=== PATIENT | female | born 1955 | race Caucasian/White ===

== ENCOUNTER 2020-08-21 15:44 | Inpatient (IN) | payer MEDICARE ==
[~2020-08-21 15:44] MED LIST: ADALAT CC30 MG PO; AMARYL4 MG PO; AMOXICILLIN500 MG PO; ANORO ELLIPTA1 EACH INH; ASPIRIN CHEWABL81 MG PO; AUGMENTIN875 MG PO; AZITHROMYCIN250 MG PO; BUSPIRONE HCL15 MG PO; BUTALB-ACETAMI1 EAC1 PO; BUTALB-ACETAMI1 EACH PO; CARDIZEM CD180 MG PO; CARDIZEM CD240 M1 PO; CARTIA XT180 MG PO; CATAPRES-TTS 21 EACH TOP; CATAPRES0.1 MG PO; CEFDINIR300 MG PO; CIPRO500 MG PO; CLONIDINE 0.3M0.3 MG PO; CLONIDINE HCL0.1 MG PO; COREG25 MG PO; DETROL LA4 MG PO; DIAZEPAM 5MG TAB5 MG PO; DIGITEK125 MCG PO; DUONEB 2.5-0.5M1 AMP INH; EPIVIR150 MG PO; FLECAINIDE ACET50 MG PO; FUROSEMIDE 40MG40 MG PO; HUMULIN 70100 UNIT/1 SC; HYDRALAZINE25 MG PO; K-DUR20 MEQ PO; KEPPRA XR750 MG PO; KLONOPIN0.5 MG PO; LAMICTAL100 MG PO; LAMICTAL150 MG PO; LASIX40 MG PO; LEVEMIR VI100 UNITS/ SC; LEVEMIR100 UNIT/1 SC; LEVEMIR100 UNIT/1 SQ; LIDOCAINE 5% P1 EACH TOP; LISINOPRIL 10MG10 MG PO; LISINOPRIL40 MG PO; LOPRESSOR50 MG PO; MAG-OXIDE 400M400 MG PO; METHOCARBAMOL500 MG PO; METOPROLOL TAR100 MG PO; MINOXIDIL2.5 MG PO; MIRALAX17 GM PO; NEURONTIN100 MG PO; NIFEDIPINE ER30 M1 PO; NORCO 5-325 TA1 EACH PO; NOVOLIN SQ; NOVOLOG FL100 UNIT/1 SC; OMEPRAZOLE40 MG PO; ONDANSETRON HCL4 MG PO; PEPCID AC20 MG PO; PHENERGAN12.5 M1 PO; PRAVACHOL20 MG PO; PREDNISONE 20MG20 MG PO; PROTONIX 40MG T40 MG PO; PROZAC20 MG PO; PROZAC40 MG PO; REGLAN10 M1 PO; REGLAN10 MG PO; REMERON15 MG PO; SEROQUEL 100MG100 MG PO; SEROQUEL 25MG T25 MG PO; SOMA250 MG PO; SYMBYAX 12-501 EACH PO; SYNTHROID150 MCG PO; TAMIFLU 75MG CA75 MG PO; TOLTERODINE TART4 MG PO; TOPROL XL 50 MG50 MG PO; TOPROL XL50 MG PO; TYLENOL #31 EACH PO; VENTOLIN HFA IN18 GM INH; VIBRAMYCIN100 MG PO; VICTOZA 2-0.6 MG/0.1 SC; VOLTAREN100 GM TOP; XANAX0.5 M1 PO; XARELTO20 MG PO; ZANTAC150 MG PO; ZOFRAN4 MG PO
[2020-08-21 16:29] LABS: BASOPHIL 0.7 % (0-2); EOSINOPHIL 2.7 % (0-5); HCT 37.2 % (37.0-47.0); HGB 11.3 g/dl (12.5-16.0); LYMPHOCYTE 38.7 % (15-48); MCH 27.2 pg (25.0-31.0); MCHC 30.4 g/dL (32.0-36.0); MCV 89.4 fL (78.0-100.0); MONOCYTE 7.8 % (0-12); MPV 11.2 fL (6.0-9.5); NEUTROPHIL 49.8 % (41-80); NRBC 0; PLT 363 K/uL (150-400); RBC 4.16 M/uL (4.20-5.40); RDW 16.1 % (11.5-14.0); WBC 10.4 K/uL (4.0-10.5)
[2020-08-21 16:33] LABS: INR 1.71 (0.9-1.2); PROTHROMBIN TIME 19.1 SECONDS (11.4-13.6)
[2020-08-21 16:42] LABS: PTT 80.2 SECONDS (22.2-34.7)
[2020-08-21 16:45] LABS: ALBUMIN 3.7 g/dL (3.4-5.0); BILIRUBIN - TOTAL 0.3 mg/dL (0.2-1.0); BUN/CREAT RATIO (CALC) 30.6 RATIO; CREATININE 1.93 mg/dL (0.51-0.95); GLOBULIN (CALCULATION) 3.7 g/dL; POTASSIUM 5.4 mmol/L (3.5-5.1); TOTAL PROTEIN 7.4 g/dL (6.4-8.2)
[2020-08-21 16:51] LABS: PRO-BNP 1620 pg/mL (<125)
[2020-08-21 17:03] LABS: LACTIC ACID 1.2 mmol/L (0.4-1.9)
[2020-08-21 17:22] LABS: BILIRUBIN NEGATIVE (NEGATIVE); BLOOD NEGATIVE Ery/uL (NEGATIVE); COLOR YELLOW (YELLOW); GLUCOSE (U) NORMAL (NORMAL); LEUKOCYTES 2+ Leu/uL (NEGATIVE); NITRITE POSITIVE (NEGATIVE); PROTEIN NEGATIVE (NEGATIVE); UROBILINOGEN 0.2 mg/dL (0.2-1.0); pH 5.5 (5.0-9.0)
[2020-08-21 17:23] LABS: CLARITY HAZY (CLEAR)
[2020-08-21 17:28] LABS: BACTERIA TRACE; SQUAMOUS EPITHELIAL CELLS RARE
[2020-08-21 21:44] LABS: IRON % SATURATION 7.3 %SAT (20-50)
[2020-08-21 22:08] LABS: FOLIC ACID (SERUM) 9.7 ng/mL (8.6-58.9)
[2020-08-21 22:54] LABS: BUN 61 mg/dL (7-18); BUN/CREAT RATIO (CALC) 34.1 RATIO; CHLORIDE 105 mmol/L (98-107); CO2 (BICARBONATE) 18 mmol/L (21-32); CREATININE 1.79 mg/dL (0.51-0.95); GLUCOSE 203 mg/dL (74-106); MAGNESIUM 2.4 mg/dL (1.8-2.4); POTASSIUM 5.3 mmol/L (3.5-5.1)
[2020-08-22 05:15] LABS: BASOPHIL 0.6 % (0-2); EOSINOPHIL 1.5 % (0-5); HCT 34.2 % (37.0-47.0); HGB 10.2 g/dl (12.5-16.0); LYMPHOCYTE 17.3 % (15-48); MCH 26.8 pg (25.0-31.0); MCHC 29.8 g/dL (32.0-36.0); MCV 89.8 fL (78.0-100.0); MONOCYTE 4.7 % (0-12); MPV 11.2 fL (6.0-9.5); NEUTROPHIL 75.6 % (41-80); NRBC 0; PLT 313 K/uL (150-400); RBC 3.81 M/uL (4.20-5.40); RDW 15.6 % (11.5-14.0); WBC 10.8 K/uL (4.0-10.5)
[2020-08-22 05:40] LABS: PRO-BNP 1423 pg/mL (<125)
[2020-08-22 05:41] LABS: ALBUMIN 3.1 g/dL (3.4-5.0); BILIRUBIN - TOTAL 0.3 mg/dL (0.2-1.0); BUN/CREAT RATIO (CALC) 35.4 RATIO; CREATININE 1.44 mg/dL (0.51-0.95); GLOBULIN (CALCULATION) 3.4 g/dL; POTASSIUM 5.2 mmol/L (3.5-5.1); TOTAL PROTEIN 6.5 g/dL (6.4-8.2)
[2020-08-22 05:49] LABS: MAGNESIUM 1.9 mg/dL (1.8-2.4)
[2020-08-23 06:08] LABS: BASOPHIL 0.8 % (0-2); EOSINOPHIL 4.1 % (0-5); HCT 32.3 % (37.0-47.0); HGB 9.8 g/dl (12.5-16.0); MCH 26.7 pg (25.0-31.0); MCHC 30.3 g/dL (32.0-36.0); MONOCYTE 7.6 % (0-12); MPV 11.2 fL (6.0-9.5); NEUTROPHIL 48.2 % (41-80); NRBC 0; PLT 251 K/uL (150-400); RBC 3.67 M/uL (4.20-5.40); RDW 15.5 % (11.5-14.0); WBC 6.5 K/uL (4.0-10.5)
[2020-08-23 06:14] LABS: CREATININE 1.07 mg/dL (0.51-0.95); POTASSIUM 4.5 mmol/L (3.5-5.1)
--- NOTE | 2020-08-23 08:00 | NUR ---
PT BLOOD CULTURES POSITIVE, VERIFIED AMOUNT AND TIME CULTURES WERE DRAWN. LAB STATES 2 SETS WERE DRAWN AT 1610 BOTH. MD ORDER ABX IV. CRITICAL VALUE CHARTED.
--- NOTE | 2020-08-23 10:16 | NUR ---
PT REPORTS SHE LIVES ALONE; ASSIST WITH CARE AND REPORTS SHE HAS ID HOME HELATH ASSUMMING THAT MEANS [facility]
[2020-08-24 06:00] LABS: HCT 31.8 % (37.0-47.0); HGB 9.8 g/dl (12.5-16.0); MCH 27.1 pg (25.0-31.0); MCHC 30.8 g/dL (32.0-36.0); MCV 87.8 fL (78.0-100.0); MPV 11.3 fL (6.0-9.5); RBC 3.62 M/uL (4.20-5.40); RDW 15.1 % (11.5-14.0); WBC 6.4 K/uL (4.0-10.5)
[2020-08-24 06:23] LABS: BUN/CREAT RATIO (CALC) 25.5 RATIO; CREATININE 0.94 mg/dL (0.51-0.95); MAGNESIUM 1.6 mg/dL (1.8-2.4); POTASSIUM 4.1 mmol/L (3.5-5.1)
[2020-08-25 04:45] LABS: BASOPHIL 0.6 % (0-2); EOSINOPHIL 3.4 % (0-5); HGB 10.1 g/dl (12.5-16.0); LYMPHOCYTE 29.6 % (15-48); MCH 26.8 pg (25.0-31.0); MCHC 29.7 g/dL (32.0-36.0); MCV 90.2 fL (78.0-100.0); MPV 11.7 fL (6.0-9.5); NEUTROPHIL 59.2 % (41-80); NRBC 0; PLT 237 K/uL (150-400); RBC 3.77 M/uL (4.20-5.40); RDW 15.2 % (11.5-14.0); WBC 8.7 K/uL (4.0-10.5)
[2020-08-25 05:00] LABS: BILIRUBIN - TOTAL 0.2 mg/dL (0.2-1.0); BUN/CREAT RATIO (CALC) 22.3 RATIO; CREATININE 1.03 mg/dL (0.51-0.95); GLOBULIN (CALCULATION) 3.2 g/dL; MAGNESIUM 2.1 mg/dL (1.8-2.4); PHOSPHORUS 3.1 mg/dL (2.6-4.7); POTASSIUM 3.7 mmol/L (3.5-5.1); TOTAL PROTEIN 6.2 g/dL (6.4-8.2)
--- NOTE | 2020-08-25 14:14 | NUR ---
08/25/20 Ms. Sarmiento shares a home with her son. She has a shower chair, emergency alert system, and emotional support dog. She is not currently followed by HH. Ms. Sarmiento states that she does not wish to have HH services at discharge.
[2020-08-25] MEDS ORDERED: SOMA250 MG PO (14:37)
[2020-08-25] MEDS ORDERED: CEFDINIR300 MG PO (14:37)
--- NOTE | 2020-08-25 15:27 | NUR ---
08/25/20 A cab voucher was provided for transport home. - Report given to MEGA Fang RN.
== END 2020-08-25 16:00 | disposition home or self-care (01) | DRG 871 ==
LOC: FER 15:44 → FICU 18:10 → FTCU 08-22 08:31
PROVIDERS: Internal Medicine; Nurse Practitioner Family; ADMIT Internal Medicine
PROC: 3E043XZ Introduction of Vasopressor into Central Vein, Percutaneous Approach (ICD-10-PCS; principal; 2020-08-21)
DX: A41.9 Sepsis, unspecified organism (principal); R65.21 Severe sepsis with septic shock; I13.0 Hypertensive heart and chronic kidney disease with heart failure and stage 1 through stage 4 chronic kidney disease, or unspecified chronic kidney disease; I50.32 Chronic diastolic (congestive) heart failure; N17.9 Acute kidney failure, unspecified; I48.20 Chronic atrial fibrillation, unspecified; N30.00 Acute cystitis without hematuria; B96.20 Unspecified Escherichia coli [E. coli] as the cause of diseases classified elsewhere; Z20.822 Contact with and (suspected) exposure to COVID-19; E86.0 Dehydration; J44.9 Chronic obstructive pulmonary disease, unspecified; E11.22 Type 2 diabetes mellitus with diabetic chronic kidney disease; E87.5 Hyperkalemia; E78.5 Hyperlipidemia, unspecified; F32.9 Major depressive disorder, single episode, unspecified; I25.10 Atherosclerotic heart disease of native coronary artery without angina pectoris; D50.9 Iron deficiency anemia, unspecified; F17.200 Nicotine dependence, unspecified, uncomplicated; F41.9 Anxiety disorder, unspecified; E03.9 Hypothyroidism, unspecified; G40.909 Epilepsy, unspecified, not intractable, without status epilepticus; N18.30 Chronic kidney disease, stage 3 unspecified; K21.9 Gastro-esophageal reflux disease without esophagitis; G89.4 Chronic pain syndrome; Z79.01 Long term (current) use of anticoagulants; Z98.890 Other specified postprocedural states; Z95.0 Presence of cardiac pacemaker; Z88.8 Allergy status to other drugs, medicaments and biological substances; Z79.4 Long term (current) use of insulin; I25.2 Old myocardial infarction; Z98.51 Tubal ligation status; Z90.710 Acquired absence of both cervix and uterus
CPT/HCPCS: 36415; 71045; 80048; 80053; 81001; 82607; 82746; 82962; 83540; 83550; 83605; 83735; 83880; 84100; 84145; 84439; 84443; 84484; 85025; 85610; 85730; 87040; 87076; 87077; 87088; 87186; 93005; 94010; 94640; 96374; 96375; J0696; J1265; J1956; J2916; J3420; J3475; J7030; J7040; U0002

== ENCOUNTER 2020-09-06 00:33 | Emergency (ER) | payer MEDICARE ==
[2020-09-06 01:40] LABS: BASOPHIL 0.7 % (0-2); EOSINOPHIL 2.8 % (0-5); HCT 37.4 % (37.0-47.0); HGB 11.6 g/dl (12.5-16.0); LYMPHOCYTE 36.7 % (15-48); MCH 27.3 pg (25.0-31.0); MONOCYTE 4.2 % (0-12); MPV 10.5 fL (6.0-9.5); NEUTROPHIL 55.2 % (41-80); NRBC 0; PLT 403 K/uL (150-400); RBC 4.25 M/uL (4.20-5.40); RDW 15.7 % (11.5-14.0)
[2020-09-06 01:41] LABS: WBC 13.4 K/uL (4.0-10.5)
[2020-09-06 01:58] LABS: ALBUMIN 3.7 g/dL (3.4-5.0); BILIRUBIN - TOTAL 0.2 mg/dL (0.2-1.0); BUN/CREAT RATIO (CALC) 27.3 RATIO; CREATININE 1.43 mg/dL (0.51-0.95); GLOBULIN (CALCULATION) 4.2 g/dL; POTASSIUM 4.5 mmol/L (3.5-5.1); TOTAL PROTEIN 7.9 g/dL (6.4-8.2)
[2020-09-06 01:59] LABS: BILIRUBIN NEGATIVE (NEGATIVE); BLOOD NEGATIVE Ery/uL (NEGATIVE); CLARITY CLEAR (CLEAR); COLOR YELLOW (YELLOW); GLUCOSE (U) NORMAL (NORMAL); LEUKOCYTES NEGATIVE Leu/uL (NEGATIVE); NITRITE NEGATIVE (NEGATIVE); PROTEIN NEGATIVE (NEGATIVE); SPECIFIC GRAVITY <=1.005 (1.001-1.030); UROBILINOGEN 0.2 mg/dL (0.2-1.0)
[2020-09-06 02:00] LABS: AMPHETAMINES NEGATIVE (NEGATIVE); BARBITURATES NEGATIVE (NEGATIVE); ECSTASY (MDMA) NEGATIVE (NEGATIVE); MARIJUANA (THC) NEGATIVE (NEGATIVE); METHADONE NEGATIVE (NEGATIVE); OPIATES NEGATIVE (NEGATIVE); OXYCODONE NEGATIVE (NEGATIVE)
[2020-09-06 02:35] LABS: CORONAVIRUS 2019 SARS-COV-2 NEGATIVE (NEGATIVE); INFLUENZA A NAA NEGATIVE (NEGATIVE)
== END 2020-09-06 07:12 | disposition home or self-care (01) ==
LOC: FER 00:33
PROVIDERS: Emergency Medicine
DX: R06.00 Dyspnea, unspecified (principal); F10.10 Alcohol abuse, uncomplicated; R07.89 Other chest pain; I11.0 Hypertensive heart disease with heart failure; I50.9 Heart failure, unspecified; E11.9 Type 2 diabetes mellitus without complications; J44.9 Chronic obstructive pulmonary disease, unspecified; F17.210 Nicotine dependence, cigarettes, uncomplicated; Z95.0 Presence of cardiac pacemaker; Y90.7 Blood alcohol level of 200-239 mg/100 ml; Z20.822 Contact with and (suspected) exposure to COVID-19
CPT/HCPCS: 36415; 71045; 80053; 80305; 81003; 83880; 84484; 85025; 85379; 93005; G0480; U0002

== ENCOUNTER 2021-01-27 11:49 | Inpatient (IN) | payer MEDICARE ==
[~2021-01-27] VITALS: Ht 160 cm; Wt 74.6 kg
[2021-01-27 12:21] LABS: BASOPHIL 0.6 % (0-2); EOSINOPHIL 0.8 % (0-5); HCT 39.3 % (37.0-47.0); HGB 12.4 g/dl (12.5-16.0); LYMPHOCYTE 20.7 % (15-48); MCHC 31.6 g/dL (32.0-36.0); MCV 85.4 fL (78.0-100.0); MONOCYTE 4.5 % (0-12); MPV 11.7 fL (6.0-9.5); NEUTROPHIL 72.5 % (41-80); NRBC 0; PLT 368 K/uL (150-400); RDW 14.7 % (11.5-14.0); WBC 23.5 K/uL (4.0-10.5)
[2021-01-27 12:26] LABS: INR 1.11 (0.9-1.2); PROTHROMBIN TIME 13.6 SECONDS (11.4-13.6); PTT 41.7 SECONDS (22.2-34.7)
[2021-01-27 12:52] LABS: LACTIC ACID 3.4 mmol/L (0.4-1.9)
[2021-01-27 12:54] LABS: PRO-BNP 2232 pg/mL (<125)
[2021-01-27 13:05] LABS: ALBUMIN 3.8 g/dL (3.4-5.0); BILIRUBIN - TOTAL 0.6 mg/dL (0.2-1.0); BUN/CREAT RATIO (CALC) 36.5 RATIO; CREATININE 1.04 mg/dL (0.51-0.95); GLOBULIN (CALCULATION) 3.8 g/dL; POTASSIUM 5.2 mmol/L (3.5-5.1); TOTAL PROTEIN 7.6 g/dL (6.4-8.2)
[2021-01-27 13:33] LABS: BILIRUBIN NEGATIVE (NEGATIVE); BLOOD TRACE-INTACT Ery/uL (NEGATIVE); CLARITY CLEAR (CLEAR); COLOR YELLOW (YELLOW); GLUCOSE (U) 3+ mg/dL (NORMAL); LEUKOCYTES NEGATIVE Leu/uL (NEGATIVE); NITRITE NEGATIVE (NEGATIVE); PROTEIN 1+ mg/dL (NEGATIVE); SPECIFIC GRAVITY 1.015 (1.001-1.030); UROBILINOGEN 0.2 mg/dL (0.2-1.0); pH 6.5 (5.0-9.0)
[2021-01-27 13:42] LABS: SQUAMOUS EPITHELIAL CELLS RARE; URINARY WBC RARE
[2021-01-27] MEDS ORDERED: ELIQUIS5 MG PO (15:46)
[2021-01-27] MEDS ORDERED: LASIX40 MG PO (15:52)
[2021-01-27] MEDS ORDERED: ANORO ELLIPTA1 EACH INH (15:57)
[2021-01-27] MEDS ORDERED: PROZAC20 MG PO (15:57)
[2021-01-27] MEDS ORDERED: DIGITEK125 MCG PO (16:00)
[2021-01-27] MEDS ORDERED: LAMICTAL100 MG PO (16:01)
[2021-01-28 05:47] LABS: BASOPHIL 0.2 % (0-2); EOSINOPHIL 0 % (0-5); HCT 37.6 % (37.0-47.0); HGB 12.5 g/dl (12.5-16.0); LYMPHOCYTE 8.3 % (15-48); MCH 26.7 pg (25.0-31.0); MCHC 33.2 g/dL (32.0-36.0); MONOCYTE 1.5 % (0-12); MPV 11.5 fL (6.0-9.5); NEUTROPHIL 89.5 % (41-80); NRBC 0; PLT 283 K/uL (150-400); RBC 4.68 M/uL (4.20-5.40); RDW 14.6 % (11.5-14.0); WBC 16.5 K/uL (4.0-10.5)
[2021-01-28 05:51] LABS: MCV 80.3 fL (78.0-100.0)
[2021-01-28 06:08] LABS: CREATININE 0.9 mg/dL (0.51-0.95); MAGNESIUM 2.3 mg/dL (1.8-2.4); POTASSIUM 4.6 mmol/L (3.5-5.1)
[2021-01-29 06:03] LABS: BASOPHIL 0.2 % (0-2); EOSINOPHIL 0.3 % (0-5); HCT 44.1 % (37.0-47.0); HGB 14.1 g/dl (12.5-16.0); LYMPHOCYTE 24.5 % (15-48); MCH 26.1 pg (25.0-31.0); MCV 81.7 fL (78.0-100.0); MONOCYTE 5.5 % (0-12); MPV 11.9 fL (6.0-9.5); NEUTROPHIL 68.8 % (41-80); NRBC 0; PLT 367 K/uL (150-400); RDW 15.1 % (11.5-14.0); WBC 19.6 K/uL (4.0-10.5)
[2021-01-29 06:22] LABS: BUN/CREAT RATIO (CALC) 41.5 RATIO; CREATININE 1.06 mg/dL (0.51-0.95); POTASSIUM 3.8 mmol/L (3.5-5.1)
[2021-01-29] MEDS ORDERED: PREDNISONE 20MG20 MG PO (10:02)
[2021-01-29] MEDS ORDERED: LASIX40 MG PO (10:02)
== END 2021-01-29 12:20 | disposition home or self-care (01) | DRG 291 ==
LOC: FER 11:49 → FTCU 13:35
PROVIDERS: Emergency Medicine; ADMIT Internal Medicine
DX: I13.0 Hypertensive heart and chronic kidney disease with heart failure and stage 1 through stage 4 chronic kidney disease, or unspecified chronic kidney disease (principal); I50.33 Acute on chronic diastolic (congestive) heart failure; J96.01 Acute respiratory failure with hypoxia; J96.02 Acute respiratory failure with hypercapnia; J44.1 Chronic obstructive pulmonary disease with (acute) exacerbation; E11.65 Type 2 diabetes mellitus with hyperglycemia; Z91.14 Patient's other noncompliance with medication regimen; I48.0 Paroxysmal atrial fibrillation; E78.5 Hyperlipidemia, unspecified; N18.9 Chronic kidney disease, unspecified; G40.909 Epilepsy, unspecified, not intractable, without status epilepticus; K21.9 Gastro-esophageal reflux disease without esophagitis; D63.1 Anemia in chronic kidney disease; E03.9 Hypothyroidism, unspecified; I27.20 Pulmonary hypertension, unspecified; F17.200 Nicotine dependence, unspecified, uncomplicated; F41.9 Anxiety disorder, unspecified; F32.9 Major depressive disorder, single episode, unspecified; Z90.710 Acquired absence of both cervix and uterus; Z95.0 Presence of cardiac pacemaker; Z98.51 Tubal ligation status; Z88.8 Allergy status to other drugs, medicaments and biological substances; Z98.890 Other specified postprocedural states
CPT/HCPCS: 36415; 36600; 71045; 80048; 80053; 81001; 82803; 82962; 83036; 83605; 83735; 83880; 84145; 84484; 85025; 85610; 85730; 87040; 93005; 94640; 94660; 94664; 94760; J1940; J1956; J2920; J2930; J7030; U0002

== ENCOUNTER 2021-05-22 09:56 | Emergency (ER) | payer MEDICARE ==
[~2021-05-22 09:56] MED LIST changes: +ELIQUIS5 MG PO
[2021-05-22 10:55] LABS: BASOPHIL 0.8 % (0-2); EOSINOPHIL 1.9 % (0-5); HCT 38.8 % (37.0-47.0); HGB 11.9 g/dl (12.5-16.0); LYMPHOCYTE 33.5 % (15-48); MCH 25.1 pg (25.0-31.0); MCHC 30.7 g/dL (32.0-36.0); MCV 81.7 fL (78.0-100.0); MONOCYTE 5.7 % (0-12); MPV 11.6 fL (6.0-9.5); NEUTROPHIL 57.8 % (41-80); NRBC 0; PLT 373 K/uL (150-400); RBC 4.75 M/uL (4.20-5.40); RDW 16.5 % (11.5-14.0); WBC 12.5 K/uL (4.0-10.5)
[2021-05-22 11:00] LABS: INR 2.17 (0.9-1.2); PROTHROMBIN TIME 23.3 SECONDS (11.8-13.4)
[2021-05-22 11:01] LABS: ALBUMIN 3.3 g/dL (3.4-5.0); BILIRUBIN - TOTAL 0.3 mg/dL (0.2-1.0); BUN/CREAT RATIO (CALC) 25.9 RATIO; CREATININE 1.74 mg/dL (0.51-0.95); GLOBULIN (CALCULATION) 3.8 g/dL; POTASSIUM 4.1 mmol/L (3.5-5.1); TOTAL PROTEIN 7.1 g/dL (6.4-8.2)
[2021-05-22 11:33] LABS: PTT 73.4 SECONDS (24.4-34.7)
[2021-05-22 12:36] LABS: CORONAVIRUS 2019 SARS-COV-2 NEGATIVE (NEGATIVE); INFLUENZA A NAA NEGATIVE (NEGATIVE)
[2021-05-22 17:33] LABS: ECSTASY (MDMA) NEGATIVE (NEGATIVE); MARIJUANA (THC) NEGATIVE (NEGATIVE); METHADONE NEGATIVE (NEGATIVE); OPIATES NEGATIVE (NEGATIVE)
[2021-05-22 17:34] LABS: AMPHETAMINES NEGATIVE (NEGATIVE); BARBITURATES NEGATIVE (NEGATIVE); OXYCODONE NEGATIVE (NEGATIVE)
[2021-05-22 17:50] LABS: BILIRUBIN NEGATIVE (NEGATIVE); BLOOD TRACE-INTACT Ery/uL (NEGATIVE); CLARITY CLEAR (CLEAR); COLOR YELLOW (YELLOW); GLUCOSE (U) NORMAL (NORMAL); LEUKOCYTES 2+ Leu/uL (NEGATIVE); NITRITE POSITIVE (NEGATIVE); PROTEIN NEGATIVE (NEGATIVE); UROBILINOGEN 0.2 mg/dL (0.2-1.0); pH 5.5 (5.0-9.0)
[2021-05-22 17:58] LABS: BACTERIA 3+
[2021-05-22] MEDS ORDERED: LASIX40 MG PO (18:45)
[2021-05-22] MEDS ORDERED: CEPHALEXIN500 MG PO (18:52)
== END 2021-05-23 05:30 | disposition home or self-care (01) ==
LOC: FER 09:56
PROVIDERS: Internal Medicine
DX: J96.01 Acute respiratory failure with hypoxia (principal); I13.0 Hypertensive heart and chronic kidney disease with heart failure and stage 1 through stage 4 chronic kidney disease, or unspecified chronic kidney disease; I50.9 Heart failure, unspecified; Z20.822 Contact with and (suspected) exposure to COVID-19; J44.9 Chronic obstructive pulmonary disease, unspecified; N39.0 Urinary tract infection, site not specified; I48.91 Unspecified atrial fibrillation; E11.22 Type 2 diabetes mellitus with diabetic chronic kidney disease; E78.5 Hyperlipidemia, unspecified; F17.210 Nicotine dependence, cigarettes, uncomplicated; Z95.0 Presence of cardiac pacemaker; Z79.01 Long term (current) use of anticoagulants; Z88.8 Allergy status to other drugs, medicaments and biological substances
CPT/HCPCS: 36415; 36600; 70450; 71045; 71250; 80053; 80305; 81001; 82803; 83880; 84484; 85025; 85379; 85610; 85730; 87076; 87088; 87186; 93005; 94640; J0696; J1885; J2310; J2930; J7040; U0002

== ENCOUNTER 2021-05-28 11:00 | Emergency (ER) | payer MEDICARE ==
[~2021-05-28 11:00] MED LIST changes: +CEPHALEXIN500 MG PO
[2021-05-28 12:03] LABS: BASOPHIL 0.5 % (0-2); EOSINOPHIL 1.6 % (0-5); HCT 35.1 % (37.0-47.0); LYMPHOCYTE 29.4 % (15-48); MCH 24.8 pg (25.0-31.0); MCHC 31.3 g/dL (32.0-36.0); MCV 79.1 fL (78.0-100.0); MONOCYTE 6.1 % (0-12); MPV 11.3 fL (6.0-9.5); NEUTROPHIL 61.4 % (41-80); NRBC 0; PLT 275 K/uL (150-400); RBC 4.44 M/uL (4.20-5.40); RDW 15.9 % (11.5-14.0); WBC 9.8 K/uL (4.0-10.5)
[2021-05-28 12:37] LABS: ALBUMIN 3.1 g/dL (3.4-5.0); BILIRUBIN - TOTAL 0.4 mg/dL (0.2-1.0); BUN/CREAT RATIO (CALC) 25.6 RATIO; CREATININE 1.29 mg/dL (0.51-0.95); GLOBULIN (CALCULATION) 3.7 g/dL; POTASSIUM 3.9 mmol/L (3.5-5.1); TOTAL PROTEIN 6.8 g/dL (6.4-8.2)
[2021-05-28 13:04] LABS: BILIRUBIN NEGATIVE (NEGATIVE); BLOOD NEGATIVE Ery/uL (NEGATIVE); CLARITY CLEAR (CLEAR); COLOR YELLOW (YELLOW); GLUCOSE (U) 3+ mg/dL (NORMAL); LEUKOCYTES NEGATIVE Leu/uL (NEGATIVE); NITRITE NEGATIVE (NEGATIVE); PROTEIN NEGATIVE (NEGATIVE); SPECIFIC GRAVITY <=1.005 (1.001-1.030); UROBILINOGEN 0.2 mg/dL (0.2-1.0); pH 6.5 (5.0-9.0)
[2021-05-28 13:07] LABS: AMPHETAMINES NEGATIVE (NEGATIVE); BARBITURATES NEGATIVE (NEGATIVE); ECSTASY (MDMA) NEGATIVE (NEGATIVE); MARIJUANA (THC) NEGATIVE (NEGATIVE); METHADONE NEGATIVE (NEGATIVE); OPIATES POSITIVE (NEGATIVE); OXYCODONE NEGATIVE (NEGATIVE)
[2021-05-28 14:08] LABS: PRO-BNP 3182 pg/mL (<125)
== END 2021-05-28 17:54 | disposition home or self-care (01) ==
LOC: FER 11:00
PROVIDERS: Internal Medicine; Nurse Practitioner Family
DX: G93.41 Metabolic encephalopathy (principal); E11.22 Type 2 diabetes mellitus with diabetic chronic kidney disease; E11.65 Type 2 diabetes mellitus with hyperglycemia; I13.0 Hypertensive heart and chronic kidney disease with heart failure and stage 1 through stage 4 chronic kidney disease, or unspecified chronic kidney disease; N18.9 Chronic kidney disease, unspecified; I50.9 Heart failure, unspecified; J44.9 Chronic obstructive pulmonary disease, unspecified; Z79.4 Long term (current) use of insulin; Z79.01 Long term (current) use of anticoagulants; Z88.8 Allergy status to other drugs, medicaments and biological substances; Z87.891 Personal history of nicotine dependence; Z20.822 Contact with and (suspected) exposure to COVID-19
CPT/HCPCS: 36415; 36600; 70450; 71045; 80053; 80305; 81003; 82009; 82803; 83690; 83880; 84484; 85025; 93005; J2310; J7030; U0002

== ENCOUNTER 2021-05-28 22:48 | Emergency (ER) | payer MEDICARE | END 2021-05-29 03:25 | disposition home or self-care (01) | LOC: FER 22:48 | DX: E11.65 Type 2 diabetes mellitus with hyperglycemia (principal); Z88.8 Allergy status to other drugs, medicaments and biological substances; Z79.4 Long term (current) use of insulin | CPT/HCPCS: 99284 ==

== ENCOUNTER 2021-05-31 00:48 | Emergency (ER) | payer MEDICARE ==
[2021-05-31 02:03] LABS: BASOPHIL 0.4 % (0-2); EOSINOPHIL 0.9 % (0-5); HCT 34.5 % (37.0-47.0); HGB 10.7 g/dl (12.5-16.0); LYMPHOCYTE 23.3 % (15-48); MCH 24.7 pg (25.0-31.0); MCV 79.5 fL (78.0-100.0); MONOCYTE 3.2 % (0-12); MPV 11.5 fL (6.0-9.5); NRBC 0; PLT 307 K/uL (150-400); RBC 4.34 M/uL (4.20-5.40); RDW 15.9 % (11.5-14.0); WBC 17.9 K/uL (4.0-10.5)
[2021-05-31 02:05] LABS: NEUTROPHIL 71.8 % (41-80)
[2021-05-31 02:49] LABS: ALBUMIN 3.2 g/dL (3.4-5.0); BILIRUBIN - TOTAL 0.3 mg/dL (0.2-1.0); BUN/CREAT RATIO (CALC) 20.3 RATIO; CREATININE 1.77 mg/dL (0.51-0.95); GLOBULIN (CALCULATION) 3.8 g/dL; POTASSIUM 4.1 mmol/L (3.5-5.1)
[2021-05-31 04:12] LABS: BILIRUBIN NEGATIVE (NEGATIVE); BLOOD NEGATIVE Ery/uL (NEGATIVE); CLARITY CLEAR (CLEAR); COLOR YELLOW (YELLOW); GLUCOSE (U) NORMAL (NORMAL); LEUKOCYTES NEGATIVE Leu/uL (NEGATIVE); NITRITE NEGATIVE (NEGATIVE); PROTEIN NEGATIVE (NEGATIVE); SPECIFIC GRAVITY <=1.005 (1.001-1.030); UROBILINOGEN 0.2 mg/dL (0.2-1.0); pH 5.5 (5.0-9.0)
== END 2021-05-31 06:14 | disposition home or self-care (01) ==
LOC: FER 00:48
PROVIDERS: Emergency Medicine
DX: F10.129 Alcohol abuse with intoxication, unspecified (principal); N17.9 Acute kidney failure, unspecified; J44.9 Chronic obstructive pulmonary disease, unspecified; I25.10 Atherosclerotic heart disease of native coronary artery without angina pectoris; I10 Essential (primary) hypertension; E11.9 Type 2 diabetes mellitus without complications; F17.200 Nicotine dependence, unspecified, uncomplicated; Z88.8 Allergy status to other drugs, medicaments and biological substances; Y90.6 Blood alcohol level of 120-199 mg/100 ml
CPT/HCPCS: 36415; 71045; 80053; 81003; 84484; 85025; 93005; G0480

== ENCOUNTER 2021-11-16 07:36 | Emergency (ER) | payer MEDICARE ==
[2021-11-16 08:12] LABS: BASOPHIL 0.5 % (0-2); EOSINOPHIL 1.5 % (0-7); HCT 40.2 % (37.0-47.0); HGB 12.2 g/dl (12.5-16.0); MCH 22.6 pg (25.0-31.0); MCHC 30.3 g/dL (32.0-36.0); MCV 74.4 fL (78.0-100.0); MONOCYTE 4.4 % (0-12); MPV 10.7 fL (6.0-9.5); NEUTROPHIL 73.9 % (41-80); NRBC 0; PLT 346 K/uL (150-400); RDW 18.8 % (11.5-14.0); WBC 16.8 K/uL (4.0-10.5)
[2021-11-16 08:30] LABS: ALBUMIN 3.7 g/dL (3.4-5.0); BILIRUBIN - TOTAL 0.4 mg/dL (0.2-1.0); BUN/CREAT RATIO (CALC) 19.6 RATIO; CREATININE 1.43 mg/dL (0.51-0.95); GLOBULIN (CALCULATION) 4.5 g/dL; POTASSIUM 3.5 mmol/L (3.5-5.1); TOTAL PROTEIN 8.2 g/dL (6.4-8.2)
[2021-11-16 08:42] LABS: BILIRUBIN NEGATIVE (NEGATIVE); BLOOD TRACE-INTACT Ery/uL (NEGATIVE); CLARITY CLEAR (CLEAR); COLOR YELLOW (YELLOW); GLUCOSE (U) NORMAL (NORMAL); LEUKOCYTES NEGATIVE Leu/uL (NEGATIVE); NITRITE NEGATIVE (NEGATIVE); PROTEIN NEGATIVE (NEGATIVE); UROBILINOGEN 0.2 mg/dL (0.2-1.0); pH 6.5 (5.0-9.0)
[2021-11-16 09:06] LABS: URINARY WBC RARE
[2021-11-16 09:07] LABS: BACTERIA TRACE
== END 2021-11-16 11:30 | disposition home or self-care (01) ==
LOC: FER 07:36
PROVIDERS: Emergency Medicine
DX: E11.649 Type 2 diabetes mellitus with hypoglycemia without coma (principal); I13.0 Hypertensive heart and chronic kidney disease with heart failure and stage 1 through stage 4 chronic kidney disease, or unspecified chronic kidney disease; E11.22 Type 2 diabetes mellitus with diabetic chronic kidney disease; I50.9 Heart failure, unspecified; N18.4 Chronic kidney disease, stage 4 (severe); F17.200 Nicotine dependence, unspecified, uncomplicated; Z88.8 Allergy status to other drugs, medicaments and biological substances
CPT/HCPCS: 36415; 80053; 81001; 85025; 93005

== ENCOUNTER 2021-12-05 23:43 | Inpatient (IN) | payer MEDICARE ==
[~2021-12-05] VITALS: Ht 160 cm; Wt 81.4 kg
[2021-12-06 00:23] LABS: BASOPHIL 0.5 % (0-2); EOSINOPHIL 0.9 % (0-7); HCT 36.7 % (37.0-47.0); HGB 10.6 g/dl (12.5-16.0); MCH 22.1 pg (25.0-31.0); MCHC 28.9 g/dL (32.0-36.0); MCV 76.6 fL (78.0-100.0); MONOCYTE 3.8 % (0-12); MPV 11.3 fL (6.0-9.5); NRBC 0; PLT 632 K/uL (150-400); RBC 4.79 M/uL (4.20-5.40); RDW 18.6 % (11.5-14.0); WBC 25.6 K/uL (4.0-10.5)
[2021-12-06 00:42] LABS: NEUTROPHIL 71.3 % (41-80)
[2021-12-06 00:43] LABS: ALBUMIN 3.4 g/dL (3.4-5.0); BILIRUBIN - TOTAL 0.6 mg/dL (0.2-1.0); BUN/CREAT RATIO (CALC) 19.4 RATIO; CREATININE 1.29 mg/dL (0.51-0.95); GLOBULIN (CALCULATION) 4.6 g/dL; POTASSIUM 4.6 mmol/L (3.5-5.1)
[2021-12-06 00:48] LABS: LACTIC ACID 4.5 mmol/L (0.4-1.9)
[2021-12-06 03:10] LABS: BILIRUBIN NEGATIVE (NEGATIVE); BLOOD NEGATIVE Ery/uL (NEGATIVE); CLARITY CLEAR (CLEAR); COLOR YELLOW (YELLOW); GLUCOSE (U) TRACE mg/dL (NORMAL); LEUKOCYTES NEGATIVE Leu/uL (NEGATIVE); NITRITE NEGATIVE (NEGATIVE); PROTEIN NEGATIVE (NEGATIVE); SPECIFIC GRAVITY 1.015 (1.001-1.030); UROBILINOGEN 0.2 mg/dL (0.2-1.0)
[2021-12-06 04:35] LABS: CORONAVIRUS 2019 SARS-COV-2 NEGATIVE (NEGATIVE); INFLUENZA A NAA NEGATIVE (NEGATIVE)
[2021-12-06] MEDS ORDERED: LASIX40 MG PO (05:58)
[2021-12-06] MEDS ORDERED: CLONIDINE HCL0.1 MG PO (05:58)
[2021-12-06] MEDS ORDERED: ELIQUIS5 MG PO (05:59)
[2021-12-06] MEDS ORDERED: VENTOLIN (2.5 MG/3 M INH (05:59)
[2021-12-06] MEDS ORDERED: CARVEDILOL 25MG25 MG PO (06:00)
[2021-12-06] MEDS ORDERED: DIAZEPAM 5MG TAB5 MG PO (06:01)
[2021-12-06] MEDS ORDERED: PROZAC20 MG PO (06:01)
[2021-12-06] MEDS ORDERED: HYDRALAZINE25 MG PO (06:02)
[2021-12-06] MEDS ORDERED: TRELEGY ELLIPT1 EAC1 INH (06:02)
[2021-12-06] MEDS ORDERED: LEVEMIR VI100 UNITS/ SC (06:03)
[2021-12-06] MEDS ORDERED: IPRATROPIUM0.2 MG/ML INH (06:04)
[2021-12-06] MEDS ORDERED: LAMICTAL100 MG PO (06:05)
[2021-12-06] MEDS ORDERED: LIDOCAINE 5% P1 EACH TOP (06:06)
[2021-12-06] MEDS ORDERED: SYNTHROID150 MCG PO (06:06)
[2021-12-06] MEDS ORDERED: MINOXIDIL2.5 MG PO (06:07)
[2021-12-06] MEDS ORDERED: LOPRESSOR50 MG PO (06:07)
[2021-12-06] MEDS ORDERED: REMERON15 MG PO (06:07)
[2021-12-06] MEDS ORDERED: ADALAT CC30 MG PO (06:08)
[2021-12-06] MEDS ORDERED: ONDANSETRON HCL4 MG PO (06:09)
[2021-12-06] MEDS ORDERED: PROTONIX 40MG T40 MG PO (06:09)
[2021-12-06] MEDS ORDERED: K-TAB ER10 MEQ PO (06:10)
[2021-12-06] MEDS ORDERED: PHENERGAN12.5 M1 PO (06:11)
[2021-12-06] MEDS ORDERED: PRAVACHOL20 MG PO (06:11)
[2021-12-06 06:18] LABS: BASOPHIL 0.2 % (0-2); EOSINOPHIL 0 % (0-7); HCT 30.3 % (37.0-47.0); HGB 8.9 g/dl (12.5-16.0); LYMPHOCYTE 3.9 % (15-48); MCH 22.3 pg (25.0-31.0); MCHC 29.4 g/dL (32.0-36.0); MCV 75.9 fL (78.0-100.0); MONOCYTE 0.5 % (0-12); NRBC 0; PLT 413 K/uL (150-400); RBC 3.99 M/uL (4.20-5.40); RDW 18.1 % (11.5-14.0); WBC 12.4 K/uL (4.0-10.5)
[2021-12-06 06:19] LABS: NEUTROPHIL 94.9 % (41-80)
[2021-12-06 06:33] LABS: IRON % SATURATION 3.6 %SAT (20-50)
[2021-12-06 06:44] LABS: BUN/CREAT RATIO (CALC) 21.2 RATIO; CREATININE 1.18 mg/dL (0.51-0.95); POTASSIUM 4.6 mmol/L (3.5-5.1)
[2021-12-07 05:52] LABS: BASOPHIL 0.2 % (0-2); EOSINOPHIL 0.4 % (0-7); HCT 29.1 % (37.0-47.0); HGB 8.8 g/dl (12.5-16.0); LYMPHOCYTE 10.9 % (15-48); MCH 22.8 pg (25.0-31.0); MCHC 30.2 g/dL (32.0-36.0); MCV 75.4 fL (78.0-100.0); MONOCYTE 2.7 % (0-12); MPV 10.7 fL (6.0-9.5); NEUTROPHIL 85.2 % (41-80); NRBC 0.1; PLT 408 K/uL (150-400); RBC 3.86 M/uL (4.20-5.40); RDW 17.9 % (11.5-14.0); WBC 17.6 K/uL (4.0-10.5)
[2021-12-07 06:14] LABS: BUN/CREAT RATIO (CALC) 24.8 RATIO; C-REACTIVE PROTEIN 4.1 mg/dL (<=0.90); CREATININE 1.33 mg/dL (0.51-0.95); POTASSIUM 3.7 mmol/L (3.5-5.1)
[2021-12-07] MEDS ORDERED: TRELEGY ELLIPT1 EAC1 INH (08:37)
[2021-12-07] MEDS ORDERED: VIBRAMYCIN100 MG PO (08:37)
[2021-12-07] MEDS ORDERED: VENTOLIN HFA IN18 GM INH (08:37)
[2021-12-07] MEDS ORDERED: FEOSOL325 MG PO (08:37)
== END 2021-12-07 14:15 | disposition home or self-care (01) | DRG 871 ==
LOC: FER 23:43 → FTCU 12-06 03:44
PROVIDERS: Emergency Medicine; Family Medicine; Internal Medicine Cardiovascular Disease; Nurse Practitioner Acute Care; ADMIT Internal Medicine
PROC: 3E03329 Introduction of Other Anti-infective into Peripheral Vein, Percutaneous Approach (ICD-10-PCS; principal; 2021-12-05)
PROC: 5A09357 Assistance with Respiratory Ventilation, Less than 24 Consecutive Hours, Continuous Positive Airway Pressure (ICD-10-PCS; 2021-12-06)
DX: A41.4 Sepsis due to anaerobes (principal); J96.01 Acute respiratory failure with hypoxia; J96.02 Acute respiratory failure with hypercapnia; I50.33 Acute on chronic diastolic (congestive) heart failure; J15.1 Pneumonia due to Pseudomonas; J15.8 Pneumonia due to other specified bacteria; J44.1 Chronic obstructive pulmonary disease with (acute) exacerbation; I16.1 Hypertensive emergency; E87.2 Acidosis; I13.0 Hypertensive heart and chronic kidney disease with heart failure and stage 1 through stage 4 chronic kidney disease, or unspecified chronic kidney disease; A41.52 Sepsis due to Pseudomonas; R65.20 Severe sepsis without septic shock; Z20.822 Contact with and (suspected) exposure to COVID-19; D50.9 Iron deficiency anemia, unspecified; R59.0 Localized enlarged lymph nodes; N18.30 Chronic kidney disease, stage 3 unspecified; E11.22 Type 2 diabetes mellitus with diabetic chronic kidney disease; E11.65 Type 2 diabetes mellitus with hyperglycemia; E78.5 Hyperlipidemia, unspecified; I25.10 Atherosclerotic heart disease of native coronary artery without angina pectoris; I48.0 Paroxysmal atrial fibrillation; F41.9 Anxiety disorder, unspecified; F32.A Depression, unspecified; G40.909 Epilepsy, unspecified, not intractable, without status epilepticus; K21.9 Gastro-esophageal reflux disease without esophagitis; M54.9 Dorsalgia, unspecified; G89.4 Chronic pain syndrome; I27.20 Pulmonary hypertension, unspecified; E03.9 Hypothyroidism, unspecified; Z95.0 Presence of cardiac pacemaker; Z90.710 Acquired absence of both cervix and uterus; Z99.81 Dependence on supplemental oxygen; Z88.1 Allergy status to other antibiotic agents; Z88.8 Allergy status to other drugs, medicaments and biological substances; Z79.4 Long term (current) use of insulin; Z79.899 Other long term (current) drug therapy
CPT/HCPCS: 36415; 36600; 70450; 71045; 71250; 80048; 80053; 81003; 82803; 83540; 83550; 83605; 83880; 84145; 84484; 85025; 86140; 87040; 93005; 94640; 94660; 94762; 97161; 97530-GP; J0692; J1815; J1940; J2543; J2916; J2930; J3010; J3370; J3475; J7040; J7050; U0002

== ENCOUNTER 2022-01-21 18:37 | Emergency (ER) | payer MEDICARE ==
[~2022-01-21 18:37] MED LIST changes: +CARVEDILOL 25MG25 MG PO; +FEOSOL325 MG PO; +IPRATROPIUM0.2 MG/ML INH; +K-TAB ER10 MEQ PO; +TRELEGY ELLIPT1 EAC1 INH; +VENTOLIN (2.5 MG/3 M INH
[2022-01-21 21:42] LABS: EOSINOPHIL 2.1 % (0-7); HCT 42.4 % (37.0-47.0); HGB 13.1 g/dl (12.5-16.0); LYMPHOCYTE 32.1 % (15-48); MCH 25.2 pg (25.0-31.0); MCHC 30.9 g/dL (32.0-36.0); MCV 81.7 fL (78.0-100.0); MONOCYTE 4.4 % (0-12); MPV 11.1 fL (6.0-9.5); NEUTROPHIL 60.1 % (41-80); NRBC 0; PLT 254 K/uL (150-400); RBC 5.19 M/uL (4.20-5.40); RDW 21.2 % (11.5-14.0); WBC 7.9 K/uL (4.0-10.5)
[2022-01-21 22:19] LABS: CORONAVIRUS 2019 SARS-COV-2 NEGATIVE (NEGATIVE); INFLUENZA A NAA NEGATIVE (NEGATIVE)
[2022-01-21 22:25] LABS: ALBUMIN 3.6 g/dL (3.4-5.0); BILIRUBIN - TOTAL 0.3 mg/dL (0.2-1.0); BUN/CREAT RATIO (CALC) 20.6 RATIO; CREATININE 1.41 mg/dL (0.51-0.95); GLOBULIN (CALCULATION) 3.8 g/dL; POTASSIUM 3.9 mmol/L (3.5-5.1); TOTAL PROTEIN 7.4 g/dL (6.4-8.2)
[2022-01-21 22:50] LABS: INR 1.29 (0.9-1.2); PROTHROMBIN TIME 15.4 SECONDS (11.8-13.4)
[2022-01-21 22:51] LABS: PTT 58.3 SECONDS (24.4-34.7)
[2022-01-21 23:21] LABS: MAGNESIUM 2.5 mg/dL (1.8-2.4); PHOSPHORUS 3.9 mg/dL (2.6-4.7); VITAMIN D (25-OH) 15.8 ng/mL (30.0-100.0)
[2022-01-22 00:41] LABS: BILIRUBIN NEGATIVE (NEGATIVE); BLOOD NEGATIVE Ery/uL (NEGATIVE); CLARITY CLEAR (CLEAR); COLOR YELLOW (YELLOW); GLUCOSE (U) NORMAL (NORMAL); LEUKOCYTES NEGATIVE Leu/uL (NEGATIVE); NITRITE NEGATIVE (NEGATIVE); PROTEIN NEGATIVE (NEGATIVE); UROBILINOGEN 0.2 mg/dL (0.2-1.0)
[2022-01-22] MEDS ORDERED: VIBRAMYCIN100 MG PO (01:56)
[2022-01-22] MEDS ORDERED: PREDNISONE 20MG20 MG PO (01:57)
== END 2022-01-22 02:30 | disposition home or self-care (01) ==
LOC: FER 18:37
PROVIDERS: Internal Medicine
DX: J44.1 Chronic obstructive pulmonary disease with (acute) exacerbation (principal); B34.9 Viral infection, unspecified; I50.9 Heart failure, unspecified; I25.2 Old myocardial infarction; E11.9 Type 2 diabetes mellitus without complications; Z20.822 Contact with and (suspected) exposure to COVID-19; Z88.8 Allergy status to other drugs, medicaments and biological substances
CPT/HCPCS: 36415; 70450; 71250; 80053; 81003; 82306; 83605; 83690; 83735; 83880; 84100; 84145; 84484; 85025; 85610; 85730; 87040; 93005; 94640; 94664; J1170; J2405; J3475; J7050; U0002

== ENCOUNTER → 2022-04-07 | Day surgery (SDC) | payer MEDICARE ==
[~2022-04-07] VITALS: Ht 160 cm; Wt 90.7 kg
[2022-04-07 08:23] LABS: HCT 44.3 % (37.0-47.0); HGB 14.5 g/dl (12.5-16.0); MCH 28.4 pg (25.0-31.0); MCHC 32.7 g/dL (32.0-36.0); MCV 86.9 fL (78.0-100.0); MPV 10.6 fL (6.0-9.5); RBC 5.1 M/uL (4.20-5.40); RDW 17.2 % (11.5-14.0); WBC 11.7 K/uL (4.0-10.5)
[2022-04-07 08:49] LABS: BUN/CREAT RATIO (CALC) 16.7 RATIO; CREATININE 1.26 mg/dL (0.51-0.95); POTASSIUM 3.3 mmol/L (3.5-5.1)
== END | disposition home or self-care (01) ==
LOC: FAS 07:07
PROVIDERS: Surgery
DX: K92.1 Melena (principal); D50.0 Iron deficiency anemia secondary to blood loss (chronic); K31.9 Disease of stomach and duodenum, unspecified; K21.00 Gastro-esophageal reflux disease with esophagitis, without bleeding; K29.60 Other gastritis without bleeding; K58.9 Irritable bowel syndrome, unspecified; I48.91 Unspecified atrial fibrillation; E78.5 Hyperlipidemia, unspecified; J44.9 Chronic obstructive pulmonary disease, unspecified; I12.9 Hypertensive chronic kidney disease with stage 1 through stage 4 chronic kidney disease, or unspecified chronic kidney disease; E11.22 Type 2 diabetes mellitus with diabetic chronic kidney disease; N18.9 Chronic kidney disease, unspecified; Z88.8 Allergy status to other drugs, medicaments and biological substances
CPT/HCPCS: 36415; 80048; J1610; J2250; J2704; J7120

== ENCOUNTER 2022-05-11 08:26 | Inpatient (IN) | payer MEDICARE ==
[~2022-05-11] VITALS: Ht 160 cm; Wt 84.5 kg
[2022-05-11 08:54] LABS: BASOPHIL 0.6 % (0-2); EOSINOPHIL 0.1 % (0-7); HCT 37.3 % (37.0-47.0); HGB 11.9 g/dl (12.5-16.0); LYMPHOCYTE 14.6 % (15-48); MCH 30.1 pg (25.0-31.0); MCHC 31.9 g/dL (32.0-36.0); MCV 94.2 fL (78.0-100.0); MONOCYTE 4.2 % (0-12); MPV 11.2 fL (6.0-9.5); NRBC 0; PLT 307 K/uL (150-400); RBC 3.96 M/uL (4.20-5.40); RDW 15.9 % (11.5-14.0); WBC 15.7 K/uL (4.0-10.5)
[2022-05-11 09:02] LABS: INR 1.22 (0.9-1.2); PTT 48.5 SECONDS (24.9-34.6)
[2022-05-11 09:11] LABS: LACTIC ACID 1.2 mmol/L (0.4-1.9)
[2022-05-11 09:14] LABS: ALBUMIN 3.2 g/dL (3.4-5.0); BILIRUBIN - TOTAL 0.5 mg/dL (0.2-1.0); BUN/CREAT RATIO (CALC) 16.1 RATIO; CREATININE 1.24 mg/dL (0.51-0.95); GLOBULIN (CALCULATION) 3.9 g/dL; MAGNESIUM 2.5 mg/dL (1.8-2.4); POTASSIUM 4.6 mmol/L (3.5-5.1); TOTAL PROTEIN 7.1 g/dL (6.4-8.2)
[2022-05-11 09:28] LABS: CORONAVIRUS 2019 SARS-COV-2 NEGATIVE (NEGATIVE); INFLUENZA A NAA NEGATIVE (NEGATIVE)
[2022-05-11] MEDS ORDERED: SEROQUEL 100MG100 MG PO (13:12)
[2022-05-11] MEDS ORDERED: CARISOPRODOL350 MG PO (13:19)
[2022-05-11 18:00] LABS: BILIRUBIN NEGATIVE (NEGATIVE); BLOOD 1+ Ery/uL (NEGATIVE); CLARITY CLEAR (CLEAR); COLOR YELLOW (YELLOW); GLUCOSE (U) 3+ mg/dL (NORMAL); LEUKOCYTES NEGATIVE Leu/uL (NEGATIVE); NITRITE NEGATIVE (NEGATIVE); PROTEIN NEGATIVE (NEGATIVE); UROBILINOGEN 0.2 mg/dL (0.2-1.0)
[2022-05-11 18:09] LABS: SQUAMOUS EPITHELIAL CELLS RARE
[2022-05-12 07:13] LABS: BUN/CREAT RATIO (CALC) 23.5 RATIO; CREATININE 1.15 mg/dL (0.51-0.95); POTASSIUM 4.4 mmol/L (3.5-5.1)
--- NOTE | 2022-05-12 13:57 | NUR ---
05/12 Ms. Desai and her son share a home together. They are supported by her SSD and the son's SSI. Ms. Desai utilizes [facility] [employer] [facility]. She has a PCP, 02 at , [facility] sMario chair, cane and emergency alert system. Ms. Desai has Extra Help from to assist with paying for medications. - She has requested [facility] if needed at discharge.
[2022-05-13 06:31] LABS: RETICULOCYTE COUNT 2.4 % (1.0-2.0)
[2022-05-13 07:04] LABS: IRON % SATURATION 10.2 %SAT (20-50)
[2022-05-13 07:45] LABS: BUN/CREAT RATIO (CALC) 26.4 RATIO; CREATININE 1.1 mg/dL (0.51-0.95); FOLIC ACID (SERUM) 10.9 ng/mL (8.6-58.9); MAGNESIUM 2.2 mg/dL (1.8-2.4); POTASSIUM 3.8 mmol/L (3.5-5.1)
[2022-05-13 13:58] LABS: BASOPHIL 0.1 % (0-2); EOSINOPHIL 0.1 % (0-7); HCT 37.9 % (37.0-47.0); HGB 12.3 g/dl (12.5-16.0); LYMPHOCYTE 13.4 % (15-48); MCH 30.4 pg (25.0-31.0); MCHC 32.5 g/dL (32.0-36.0); MCV 93.6 fL (78.0-100.0); MONOCYTE 5.8 % (0-12); NEUTROPHIL 80.2 % (41-80); NRBC 0; PLT 284 K/uL (150-400); RBC 4.05 M/uL (4.20-5.40); RDW 15.7 % (11.5-14.0); WBC 13.4 K/uL (4.0-10.5)
--- NOTE | 2022-05-13 16:33 | NUR ---
05/13/22 A cab voucher was provided for transport home.
[2022-05-13] MEDS ORDERED: ZPAK PO (16:54)
[2022-05-13] MEDS ORDERED: MUCINEX1200 MG PO (16:54)
[2022-05-17] MEDS ORDERED: DOXYCYCLINE MO100 M1 PO (12:39)
== END 2022-05-13 18:15 | disposition home or self-care (01) | DRG 871 ==
LOC: FER 08:26 → FTCU 12:00 → FMS 12:00 → FTCU 12:32 → FMS 05-13 13:20
PROVIDERS: Emergency Medicine; Internal Medicine; ADMIT Family Medicine
PROC: 3E03329 Introduction of Other Anti-infective into Peripheral Vein, Percutaneous Approach (ICD-10-PCS; 2022-05-11)
PROC: 5A09357 Assistance with Respiratory Ventilation, Less than 24 Consecutive Hours, Continuous Positive Airway Pressure (ICD-10-PCS; 2022-05-11)
PROC: 5A09357 Assistance with Respiratory Ventilation, Less than 24 Consecutive Hours, Continuous Positive Airway Pressure (ICD-10-PCS; principal; 2022-05-12)
DX: A41.9 Sepsis, unspecified organism (principal); I50.33 Acute on chronic diastolic (congestive) heart failure; J18.9 Pneumonia, unspecified organism; J96.01 Acute respiratory failure with hypoxia; J96.02 Acute respiratory failure with hypercapnia; J44.0 Chronic obstructive pulmonary disease with (acute) lower respiratory infection; J44.1 Chronic obstructive pulmonary disease with (acute) exacerbation; N17.9 Acute kidney failure, unspecified; I48.20 Chronic atrial fibrillation, unspecified; I13.0 Hypertensive heart and chronic kidney disease with heart failure and stage 1 through stage 4 chronic kidney disease, or unspecified chronic kidney disease; R65.20 Severe sepsis without septic shock; F32.A Depression, unspecified; F41.9 Anxiety disorder, unspecified; D50.9 Iron deficiency anemia, unspecified; N18.30 Chronic kidney disease, stage 3 unspecified; E78.5 Hyperlipidemia, unspecified; E11.22 Type 2 diabetes mellitus with diabetic chronic kidney disease; G47.33 Obstructive sleep apnea (adult) (pediatric); G40.909 Epilepsy, unspecified, not intractable, without status epilepticus; I25.10 Atherosclerotic heart disease of native coronary artery without angina pectoris; K21.9 Gastro-esophageal reflux disease without esophagitis; F17.210 Nicotine dependence, cigarettes, uncomplicated; Z71.6 Tobacco abuse counseling; Z79.01 Long term (current) use of anticoagulants; Z95.0 Presence of cardiac pacemaker; Z90.710 Acquired absence of both cervix and uterus; Z80.1 Family history of malignant neoplasm of trachea, bronchus and lung; Z79.899 Other long term (current) drug therapy; Z99.81 Dependence on supplemental oxygen
CPT/HCPCS: 36415; 36600; 71045; 71250; 80048; 80053; 81001; 82607; 82746; 82803; 82962; 83036; 83540; 83550; 83605; 83735; 83880; 84145; 84484; 85025; 85610; 85730; 87040; 87070; 87077; 87186; 87205; 93005; 94010; 94640; 94660; 94664; 94667; 94668; 94760; J0456; J0696; J1815; J1940; J2405; J2920; J2930; J3370; J7050; U0002

== ENCOUNTER 2022-05-18 12:23 | Inpatient (IN) | payer MEDICARE ==
[~2022-05-18] VITALS: Ht 160 cm; Wt 85.0 kg
[~2022-05-18 12:23] MED LIST changes: +CARISOPRODOL350 MG PO; +DOXYCYCLINE MO100 M1 PO; +MUCINEX1200 MG PO; +ZPAK PO
[2022-05-18 12:59] LABS: BASOPHIL 0.5 % (0-2); HCT 39.5 % (37.0-47.0); HGB 12.7 g/dl (12.5-16.0); LYMPHOCYTE 12.4 % (15-48); MCHC 32.2 g/dL (32.0-36.0); MCV 96.3 fL (78.0-100.0); NEUTROPHIL 79.7 % (41-80); NRBC 0.2; PLT 323 K/uL (150-400); WBC 19.2 K/uL (4.0-10.5)
[2022-05-18 13:21] LABS: ALBUMIN 3.7 g/dL (3.4-5.0); BILIRUBIN - TOTAL 0.6 mg/dL (0.2-1.0); BUN/CREAT RATIO (CALC) 23.5 RATIO; CREATININE 1.15 mg/dL (0.51-0.95); GLOBULIN (CALCULATION) 3.6 g/dL; POTASSIUM 4.8 mmol/L (3.5-5.1); TOTAL PROTEIN 7.3 g/dL (6.4-8.2)
[2022-05-18 13:42] LABS: LACTIC ACID 2.1 mmol/L (0.4-1.9)
[2022-05-18 14:38] LABS: INR 1.2 (0.9-1.2); PROTHROMBIN TIME 14.8 SECONDS (11.9-13.9)
[2022-05-18 14:39] LABS: PTT 45.4 SECONDS (24.9-34.6)
--- NOTE | 2022-05-18 17:24 | NUR ---
RECEIVED FROM ER VIA STRETCHER ON BIPAP; REPORT RECEIVED FROM LUCIE ROMERO.
[2022-05-19 06:26] LABS: BASOPHIL 0.3 % (0-2); EOSINOPHIL 0.1 % (0-7); HCT 41.8 % (37.0-47.0); LYMPHOCYTE 15.9 % (15-48); MCH 29.8 pg (25.0-31.0); MCHC 31.1 g/dL (32.0-36.0); MCV 95.9 fL (78.0-100.0); MONOCYTE 4.6 % (0-12); MPV 11.1 fL (6.0-9.5); NEUTROPHIL 77.7 % (41-80); NRBC 0; PLT 362 K/uL (150-400); RBC 4.36 M/uL (4.20-5.40); RDW 16.9 % (11.5-14.0); WBC 17.3 K/uL (4.0-10.5)
[2022-05-19 06:45] LABS: BUN/CREAT RATIO (CALC) 25.9 RATIO; CREATININE 1.08 mg/dL (0.51-0.95); POTASSIUM 3.7 mmol/L (3.5-5.1)
--- NOTE | 2022-05-20 05:22 | NUR ---
PT CRYING AND ANXIOUS AT BEGINING OF SHIFT, PT STATED THAT SHE IS STRESSED AND WORRIED ABOUT HER SON AND DOG. PT B/P WAS ELEVATED AT THIS TIME, PT REQUESTED MEDICATION TO HELP HER WITH ANXIETY.MEDICATION WAS GIVEN ORDRED FOR ANXIETY PT STATED THAT THE MEDICATION (aTIVAN) HAS HELPED HER TO REST. BLOOD GLUCOSE 58, SODA GIVEN- DRANK 100%, NEXT BG WAS 69, PT ATE A SNACK LUNCH , NEXT BG WAS 187. AT 0230 BG 346, PT REFUSED TO WEAR BIPAP, Ravinder DELGADO NOTIFIED OF ABOVE. CALL BEL;L IN REACH, BED LOCKED AND IN ITS LOWEST POSITION, PT RESTING IN BED WITH EYES CLOSED RESP EVEN AND UNLABORED.
--- NOTE | 2022-05-20 10:49 | NUR ---
05/20/22 Ms. Sarmiento presented to the ED on 05/18. At this time, her daughter, Rossy Cortez, , inquired about NH placement. Ms. Cortez reports to have inquired about Assisted Living and determined that Assisted Living is not affordable. SNF admission criteria was explained. - Ms. Sarmiento shares an apartment with her son. Ms. Cortez reports her intentions is to get her mother in an apartment be herself. - This sw met with Ms. Sarmiento today. She was emotional talking about moving in relationship with the possibility of not being able to have her dog if she moves. - Ms. Sarmiento was provided with the following resources: Subsidized housing, [facility], [facility], and mental health services. - She receives Extra Help. She has: 02, portable, and rw. - No HH is recommended.
[2022-05-21] MEDS ORDERED: LEVAQUIN500 MG PO (09:56)
[2022-05-21] MEDS ORDERED: PREDNISONE20 MG PO (09:56)
== END 2022-05-21 12:00 | disposition home or self-care (01) | DRG 193 ==
LOC: FER 12:23 → FTCU 14:47
PROVIDERS: Internal Medicine; ADMIT Internal Medicine
PROC: 5A09357 Assistance with Respiratory Ventilation, Less than 24 Consecutive Hours, Continuous Positive Airway Pressure (ICD-10-PCS; principal; 2022-05-18)
DX: J18.9 Pneumonia, unspecified organism (principal); J96.01 Acute respiratory failure with hypoxia; J44.1 Chronic obstructive pulmonary disease with (acute) exacerbation; I13.0 Hypertensive heart and chronic kidney disease with heart failure and stage 1 through stage 4 chronic kidney disease, or unspecified chronic kidney disease; I16.1 Hypertensive emergency; I48.20 Chronic atrial fibrillation, unspecified; I50.32 Chronic diastolic (congestive) heart failure; J44.0 Chronic obstructive pulmonary disease with (acute) lower respiratory infection; F41.9 Anxiety disorder, unspecified; E78.5 Hyperlipidemia, unspecified; Z20.822 Contact with and (suspected) exposure to COVID-19; I25.10 Atherosclerotic heart disease of native coronary artery without angina pectoris; E11.22 Type 2 diabetes mellitus with diabetic chronic kidney disease; N18.30 Chronic kidney disease, stage 3 unspecified; K21.9 Gastro-esophageal reflux disease without esophagitis; M54.9 Dorsalgia, unspecified; G89.29 Other chronic pain; D63.1 Anemia in chronic kidney disease; I27.20 Pulmonary hypertension, unspecified; Z90.710 Acquired absence of both cervix and uterus; Z95.0 Presence of cardiac pacemaker; Z88.8 Allergy status to other drugs, medicaments and biological substances; F17.210 Nicotine dependence, cigarettes, uncomplicated; Z80.1 Family history of malignant neoplasm of trachea, bronchus and lung; Z79.899 Other long term (current) drug therapy; Z79.01 Long term (current) use of anticoagulants; Z79.4 Long term (current) use of insulin
CPT/HCPCS: 36415; 36600; 70450; 71045; 71250; 80048; 80053; 82803; 82962; 83036; 83605; 83880; 84145; 84484; 85025; 85610; 85730; 87040; 93005; 94640; 94660; 94664; 94667; 94668; 94760; 94762; 97162; 97166; 97535; J1100; J1815; J1885; J1940; J2060; J2543; J2920; J3010; J7030; U0002